=== PATIENT | male | born 1980 | race Caucasian/White ===

== ENCOUNTER 2016-03-04 12:16 | Emergency (ER) | payer MEDICAID ==
[~2016-03-04] VITALS: Ht 167.6 cm; Wt 95.0 kg
[2016-03-04 12:18] VITALS: BP 220/117; PULSE 122; RESP 16; TEMP 98.1; O2SAT 96
[2016-03-04 12:20] VITALS: BP_SYST 134; BP_SYST 247; BP_DIAS 110; BP_DIAS 113; PULSE 144; RESP 20; TEMP 97.5; O2SAT 95
[2016-03-04] MEDS ORDERED: SODIUM CHLORIDE 0.9% FLUSH 5 ML FLUSH IVF PRN (13:30)
[2016-03-04] MEDS ORDERED: LABETALOL HCL 100 MG/20 ML VIAL IV PUSH ONE (13:30)
--- NOTE | 2016-03-04 13:31 | PD ---
HPI Chief Complaint: Pain: Acute or Chronic Time Seen by Provider: 13:29 Travel History International Travel<30 days: No Contact w/Intl Traveler<30days: No Traveled to known affect area: No History of Present Illness HPI 36 year old male presents to the emergency department for evaluation of right low back pain that started 3 days ago while playing basketball. He states he twisted has had low back pain since. He denies any back pain before this. Patient's has been taking Advil for relief. He does report a history of tachycardia when he was a cat. He states last time he had issues with sinus tachycardia was when he was 18. He states that blood pressure runs in his family, but as far as he knows he doesn't have hypertension. He denies taking any current medications. He does report a history of anxiety was previously on Xanax, but is not currently on it. Patient denies any chest pain or shortness of breath. He denies any palpitations. He denies any IV drug use. No fevers or chills. No loss of bowel or bladder control. No saddle anesthesias. Patient states back pain is worse with movement, relieved with rest. PFSH Social History Alcohol Use: No Tobacco Use: No Substance Use: No Allergies-Medications (Allergen,Severity, Reaction): Coded Allergies: No Known Allergies (Unverified , 03/04/16) Review of Systems Except as stated in HPI: all other systems reviewed are Neg Physical Exam Narrative GENERAL: Well-developed well-nourished anxious male patient, ambulatory. Afebrile. SKIN: Warm and dry. HEAD: Normocephalic. Atraumatic. EYES: No scleral icterus. No injection or drainage. NECK: Supple, trachea midline. No JVD or lymphadenopathy. CARDIOVASCULAR: Regular rhythm without murmurs, gallops, or rubs. Patient is tachycardic with heart rate in the 140s. RESPIRATORY: Breath sounds equal bilaterally. No accessory muscle use. Lungs sounds clear to auscultation. GASTROINTESTINAL: Abdomen soft, non-tender, nondistended. MUSCULOSKELETAL: No cyanosis, or edema. Bilateral upper and lower strength 5/ 5. All extremities are neurovascularly intact. BACK: Nontender without obvious deformity. No CVA tenderness. No midline spinal tenderness. Patient' has tenderness to palpation over the right lumbar paraspinal musculature. Data Data Last Documented VS Vital Signs Date Time Temp Pulse Resp B/P Pulse Ox O2 Delivery O2 Flow Rate FiO2 03/04/16 13:48 97 18 181/107 95 Room Air 03/04/16 12:20 97.5 Orders Electrocardiogram (03/04/16 13:27) Basic Metabolic Panel (Bmp) (03/04/16 13:27) Ckmb (Isoenzyme) Profile (03/04/16 13:27) Complete Blood Count With Diff (03/04/16 13:27) Magnesium (Mg) (03/04/16 13:27) Troponin I (03/04/16 13:27) Chest, Single Ap (03/04/16 13:27) Ecg Monitoring (03/04/16 13:27) Bilateral Bp Monitoring (03/04/16 13:27) Iv Access Insert/Monitor (03/04/16 13:27) Oximetry (03/04/16 13:27) Oxygen Administration (03/04/16 13:27) Sodium Chloride 0.9% Flush (Ns Flush) (03/04/16 13:30) Labetalol Inj (Trandate Inj) (03/04/16 13:30) Ondansetron Inj (Zofran Inj) (03/04/16 13:45) Morphine Inj (Morphine Inj) (03/04/16 13:45) Lorazepam Inj (Ativan Inj) (03/04/16 13:45) CKMB (03/04/16 13:25) CKMB% (03/04/16 13:25) Magnesium Oxide (Mag-Ox) (03/04/16 15:00) Sodium Chlorid 0.9% 500 Ml Inj (Ns 500 M (03/04/16 15:00) Labs Laboratory Tests Test 03/04/16 13:25 White Blood Count 12.7 TH/MM3 Red Blood Count 5.33 MIL/MM3 Hemoglobin 19.0 GM/DL Hematocrit 54.0 % Mean Corpuscular Volume 101.4 FL Mean Corpuscular Hemoglobin 35.7 PG Mean Corpuscular Hemoglobin 35.2 % Concent Red Cell Distribution Width 14.1 % Platelet Count 189 TH/MM3 Mean Platelet Volume 9.1 FL Neutrophils (%) (Auto) 70.6 % Lymphocytes (%) (Auto) 20.2 % Monocytes (%) (Auto) 7.1 % Eosinophils (%) (Auto) 1.2 % Basophils (%) (Auto) 0.9 % Neutrophils # (Auto) 8.9 TH/MM3 Lymphocytes # (Auto) 2.6 TH/MM3 Monocytes # (Auto) 0.9 TH/MM3 Eosinophils # (Auto) 0.2 TH/MM3 Basophils # (Auto) 0.1 TH/MM3 CBC Comment AUTO DIFF Differential Comment AUTO DIFF CONFIRMED Toxic Vacuolation PRESENT Platelet Estimate NORMAL Platelet Morphology Comment NORMAL Sodium Level 136 MEQ/L Potassium Level 3.5 MEQ/L Chloride Level 100 MEQ/L Carbon Dioxide Level 29.0 MEQ/L Anion Gap 7 MEQ/L Blood Urea Nitrogen 8 MG/DL Creatinine 0.75 MG/DL Estimat Glomerular Filtration 118 ML/MIN Rate Random Glucose 149 MG/DL Calcium Level 8.8 MG/DL Magnesium Level 1.4 MG/DL Total Creatine Kinase 417 U/L Creatine Kinase MB 7.0 NG/ML Creatine Kinase MB % 1.7 % Troponin I LESS THAN 0.02 NG/ML MDM Medical Decision Making Medical Screen Exam Complete: Yes Emergency Medical Condition: Yes Medical Record Reviewed: Yes Interpretation(s) Last Impressions Chest X-Ray 03/04/16 1327 Signed Impressions: Service Date/Time: Friday, March 04, 2016 13:44 - CONCLUSION: Negative for acute disease. David Bhatt MD FACR Differential Diagnosis Sinus tachycardia versus anxiety versus palpitations versus muscle strain versus muscle spasm Narrative Course 36-year-old male presents to the emergency department complaining of right low back pain after playing basketball 3 days ago. However, in triage, his heart rate was noted to be elevated in the 140s and his blood pressure was elevated. Blood pressure was noted to be 247/113 with a heart rate of 144. Patient does report a history of sinus tachycardia, but not since he was CT and years old. Patient is very anxious on exam. EKG shows sinus tachycardia, heart rate 132. CBC, BMP, CK, troponin, magnesium are ordered and pending. Chest x-ray is ordered and pending. Patient is given labetalol 10 mg IV, morphine 4 mg IV, Zofran 4 mg IV, Ativan 2 mg IV. CBC shows leukocytosis of 12.7. BMP shows glucose of 149. CK is 417. Troponin is less than 0.02. Magnesium is 1.4. Chest x-ray is negative for acute disease. Due to Ryan elevated CK and hemoconcentration, the patient is given normal saline 500 mL IV bolus. He is given magnesium oxide 400 mg by mouth. Upon reexamination, heart rate is now in the 90s, sinus rhythm, and blood pressure is 149/91. Patient states he feels much better on exam. Patient will be discharged short-term prescription for Lortab and Robaxin. He' ll also be given Metroprolol. He is instructed to follow-up with primary care physician. He verbalizes agreement and understanding. He is instructed to return for any acute worsening of symptoms. The patient was discharged in stable condition with instructions, including return instructions and follow up instructions. Diagnosis Primary Impression: Tachycardia with hypertension Additional Impressions: Low back pain Qualified Code: M54.5 - Acute right-sided low back pain without sciatica Anxiety Referrals: Primary Care Physician 3 days Patient Instructions: Acute Low Back Pain (ED), Anxiety (ED), General Instructions, Hypertension (ED), Tachycardia (ED) Additional Instructions: Take metoprolol as directed. Take Lortab as instructed as needed for pain. Caution this can make you drowsy since do not drive after taking. Take Robaxin as instructed as needed. Follow-up with a primary care physician. Return to the emergency department for any acute worsening of symptoms. Med/Other Pt SpecificInfo: Prescription(s) given Scripts Methocarbamol (Robaxin)750 Mg Ixa701 Mg PO TID PRN (MUSCLE SPASM) #21 TAB Ref 0 Prov:Ny Espinoza 03/04/16 Metoprolol Tartrate 25 Mg Tab25 Mg PO BID #60 TAB Ref 0 Prov:Ny Espinoza 03/04/16 Hydrocodone-Acetaminophen (Lortab)5-325 Mg Tab1 Tab PO Q6H PRN (PAIN) #12 TAB Ref 0 Prov:Shantal Saba MD 03/04/16 Disposition: 01 DISCHARGE HOME Condition: Stable Ny Espinoza Mar 04, 2016 13:31
--- NOTE | 2016-03-04 13:41 | PD ---
Physical Exam Date Seen by Provider: Mar 04, 2016 Narrative Patient presents following a back injury Data Data Last Documented VS Vital Signs Date Time Temp Pulse Resp B/P Pulse Ox O2 Delivery O2 Flow Rate FiO2 03/04/16 12:20 97.5 144 20 134/110 95 247/113 Orders Electrocardiogram (03/04/16 13:27) Basic Metabolic Panel (Bmp) (03/04/16 13:27) Ckmb (Isoenzyme) Profile (03/04/16 13:27) Complete Blood Count With Diff (03/04/16 13:27) Magnesium (Mg) (03/04/16 13:27) Troponin I (03/04/16 13:27) Chest, Single Ap (03/04/16 13:27) Ecg Monitoring (03/04/16 13:27) Bilateral Bp Monitoring (03/04/16 13:27) Iv Access Insert/Monitor (03/04/16 13:27) Oximetry (03/04/16 13:27) Oxygen Administration (03/04/16 13:27) Sodium Chloride 0.9% Flush (Ns Flush) (03/04/16 13:30) Labetalol Inj (Trandate Inj) (03/04/16 13:30) Ondansetron Inj (Zofran Inj) (03/04/16 13:45) Morphine Inj (Morphine Inj) (03/04/16 13:45) Lorazepam Inj (Ativan Inj) (03/04/16 13:45) MDM Supervised Visit with MOE: Yes Narrative Course I, Dr. Saba, have reviewed the advance practice practitioner's documentation and am in agreement, met with the patient face to face, made the diagnosis, and the medical decision making was done by me. *My assessment and Findings: This patient is extremely anxious. He is tachycardic and hypertensive. He has been given labetalol, morphine and Ativan. His heart rate and blood pressure are coming down at this point. We will continue to monitor. Shantal Saba MD Mar 04, 2016 13:41
[2016-03-04 13:43] VITALS: BP_SYST 198; BP_SYST 204; BP_DIAS 100; BP_DIAS 113; PULSE 98; RESP 18; O2SAT 94
[2016-03-04] MEDS ORDERED: ONDANSETRON HCL 4 MG/2 ML VIAL IV PUSH ONE (13:45)
[2016-03-04] MEDS ORDERED: MORPHINE SULFATE 4 MG/ML INJ IV ONE (13:45)
[2016-03-04] MEDS ORDERED: LORazepam 2 MG/ML VIAL IV PUSH ONE (13:45)
[2016-03-04 13:48] VITALS: BP 181/107; PULSE 97; RESP 18; O2SAT 95
[2016-03-04 13:57] LABS: AUTOMATED NEUTROPHIL # 8.9 TH/MM3 (1.8-7.7); BASOPHIL # 0.1 TH/MM3 (0-0.2); BASOPHIL % 0.9 % (0.0-2.0); EOSINOPHIL # 0.2 TH/MM3 (0-0.4); EOSINOPHIL % 1.2 % (0.0-4.0); LYMPH % 20.2 % (9.0-44.0); LYMPHOCYTE # 2.6 TH/MM3 (1.0-4.8); MEAN CELL VOLUME 101.4 FL (80.0-100.0); MEAN CORPUSCULAR HEMOGLOBIN 35.7 PG (27.0-34.0); MEAN CORPUSCULAR HGB CONC 35.2 % (32.0-36.0); MONO % 7.1 % (0.0-8.0); NEUT % 70.6 % (16.0-70.0); PLATELET COUNT 189 TH/MM3 (150-450); RED BLOOD COUNT 5.33 MIL/MM3 (4.50-5.90); RED CELL DISTRIBUTION WIDTH 14.1 % (11.6-17.2); WHITE BLOOD COUNT 12.7 TH/MM3 (4.0-11.0)
[2016-03-04 14:01] LABS: HEMO FLAGS AUTO DIFF
[2016-03-04 14:10] LABS: CREATINE KINASE 417 U/L (39-308)
[2016-03-04 14:11] LABS: ANION GAP 7 MEQ/L (5-15); BLOOD UREA NITROGEN 8 MG/DL (7-18); CHLORIDE 100 MEQ/L (98-107); GLOMERULAR FILTRATION RATE 118 ML/MIN (>89); MAGNESIUM 1.4 MG/DL (1.5-2.5); POTASSIUM 3.5 MEQ/L (3.5-5.1); SODIUM (NA) 136 MEQ/L (136-145)
[2016-03-04 14:39] LABS: PLATELET ESTIMATE SMEAR NORMAL (NORMAL); PLATELET MORPHOLOGY NORMAL (NORMAL); SCAN/DIFF AUTO DIFF CONFIRMED
[2016-03-04 14:40] LABS: TOXIC VACUOLATION PRESENT (NONE SEEN)
--- NOTE | 2016-03-04 14:56 | RADRPT ---
EXAM DATE/TIME: 03/04/2016 13:44 [facility] COMPARISON: No previous studies available for comparison. INDICATIONS : Shortness of breath. MEDICAL HISTORY : None. SURGICAL HISTORY : None. ENCOUNTER: Initial ACUITY: 1 day PAIN SCORE: 0/10 LOCATION: Bilateral chest FINDINGS: A single view of the chest demonstrates the lungs to be symmetrically aerated without evidence of mas s, infiltrate or effusion. The cardiomediastinal contours are unremarkable. Osseous structures are intact. CONCLUSION: Negative for acute disease. David Bhatt MD FACR on March 04, 2016 at 14:03 Board Certified Radiologist. This report was verified electronically.
[2016-03-04] MEDS ORDERED: MAGNESIUM OXIDE 400 MG TAB PO ONE (15:00)
[2016-03-04] MEDS ORDERED: SODIUM CHLORID 0.9% 500 ML INJ 500 ML IV ONE (15:00)
[2016-03-04] MEDS ORDERED: HYDR-3533 PO (15:09)
[2016-03-04 15:11] VITALS: BP 149/91; PULSE 106; RESP 18; O2SAT 99
[2016-03-04] MEDS ORDERED: METO25TA3 PO (15:13)
[2016-03-04] MEDS ORDERED: ROBA750T PO (15:13)
[2016-03-04 16:19] VITALS: BP 148/87; TEMP 98.3
--- NOTE | 2016-03-05 12:52 | EKG ---
Date Performed: 03/04/2016 Time Performed: 13:25:58 PTAGE: 36 years EKG: SINUS TACHYCARDIA NONSPECIFIC ST & T-WAVE ABNORMALITY ABNORMAL ECG INTERPRETATION BASED ON A DEFAULT AGE OF 40 YEARS NO PREVIOUS TRACING DOCTOR: Thomas Peralta Interpretating Date/Time 03/05/2016 12:51:14
== END 2016-03-04 16:00 | disposition home or self-care (01) ==
LOC: NEPA 12:16
DX: R00.0 Tachycardia, unspecified (principal); M54.5 Low back pain; F41.9 Anxiety disorder, unspecified; R94.31 Abnormal electrocardiogram [ECG] [EKG]; I10 Essential (primary) hypertension; X50.1XXA Overexertion from prolonged static or awkward postures, initial encounter; Y93.67 Activity, basketball
CPT/HCPCS: 71010; 80048; 82550; 82552; 83735; 84484; 85025; 93005; 96374; 96375; 99285; J2060; J2270; J2405; J7040